=== PATIENT | male | born 1975 | race Caucasian/White ===

== ENCOUNTER 2020-12-27 17:49 | Emergency (ER) | payer OTHER ==
[~2020-12-27] VITALS: Ht 180.3 cm; Wt 79.4 kg
[~2020-12-27 17:49] MED LIST: CIPRO500 MG PO; FLAGYL500MG PO; INTESTINEX1 CAP PO
[2020-12-28] MEDS ORDERED: LEVSIN/SL0.125 MG SL (06:29)
[2020-12-28] MEDS ORDERED: CIPRO500 MG PO (06:29)
[2020-12-28] MEDS ORDERED: INTESTINEX680 M1 PO (06:29)
== END 2020-12-28 06:51 | disposition home or self-care (01) ==
LOC: ER 17:49
DX: A08.4 Viral intestinal infection, unspecified (principal); Z03.818 Encounter for observation for suspected exposure to other biological agents ruled out